=== PATIENT | male | born 1980 | race Caucasian/White ===

== ENCOUNTER 2018-06-23 19:42 | Emergency (ER) | payer SELFPAY | END 2018-06-23 20:20 | disposition left against medical advice (07) | LOC: E/R 19:42 | DX: Z53.21 Procedure and treatment not carried out due to patient leaving prior to being seen by health care provider (principal) ==

== ENCOUNTER 2018-07-13 15:56 | Emergency (ER) | payer SELFPAY ==
[~2018-07-13] VITALS: Ht 172.7 cm; Wt 70.5 kg
[2018-07-13 15:59] VITALS: BP 135/73; PULSE 70; RESP 18; Ht 172.7 cm; Wt 70.5 kg
--- NOTE | 2018-07-13 16:15 | ERD ---
ER Documentation Chief Complaint Chief Complaint L hand contusion/pain/swelling after slammed in door while working 1 hr ago HPI 37-year-old male presents complaint of left hand pain. Patient says that he slammed a door in his hand while working about an hour ago. His pain is currently 5 out of 10. Has not taken any treatments. Pain is made worse with movement. Patient denies any numbness, tingling. Patient denies allergies patient denies medical history. ROS All systems reviewed and are negative except as per history of present illness. Medications Home Meds Active Scripts Ibuprofen* (Motrin*) 600 Mg Tab, 600 MG PO Q6 for pain, #30 TAB Prov:DEMI GAMA 07/13/18 Allergies Allergies: Coded Allergies: No Known Allergy (Unverified , 07/13/18) FmHx Family History: No diabetes, No coronary disease, No other Physical Exam Vitals Vital Signs Date Temp Pulse Resp B/P (MAP) Pulse Ox O2 O2 Flow FiO2 Time Delivery Rate 07/13/18 97.9 70 18 135/73 100 15:59 (93) Physical Exam Const: No acute distress Head: Atraumatic Eyes: Normal Conjunctiva ENT: Normal External Ears, Nose and Mouth. Neck: Full range of motion. No meningismus. Resp: Clear to auscultation bilaterally Cardio: Regular rate and rhythm, no murmurs Abd: Soft, non tender, non distended. Normal bowel sounds Skin: No petechiae or rashes Back: No midline or flank tenderness Left hand: Tenderness to palpation, edema, and ecchymosis located over the second metatarsal of left hand. There is no melchor deformity noted. Overlying skin is intact. Compartments are soft and warm. There is no pallor or cyanosis. Range of motion, distal pulses, and distal sensation is intact. There is normal cap refill. Neur: Awake and alert Psych: Normal Mood and Affect Results 24 hrs Current Medications Medications Dose Sig/Shawn Start Time Status Last (Trade) Ordered Route PRN Stop Time Admin Dose Reason Admin Ibuprofen 600 mg ONCE ONCE 07/13/18 07/13/18 (Motrin) PO 16:30 07/13/18 16:12 16:31 Procedures/MDM DIAGNOSTIC IMAGING REPORT Patient: JOSE LUIS ELAINE DutchPavel : 1980 Age: 37 Sex: M MR #: [id number] DOS: 07/13/18 1607 Ordering MD: DEMI GAMA Location: [facility] Room/Bed: PROCEDURE: XR Left Hand. CLINICAL INDICATION: Trauma. Left hand pain. TECHNIQUE: Three views. Frontal, lateral, and oblique images of the left hand were obtained. COMPARISON: No prior studies are available for comparison. FINDINGS: There is no fracture or dislocation. The soft tissues are normal. Articular surfaces are intact. There is no lytic or blastic lesion. There is no radiopaque foreign body. IMPRESSION: 1. Unremarkable images of the left hand. RPTAT: QQ .Gelacio Paris MD, MD Date Time Electronically viewed and signed by .Gelacio Paris MD, on 07/13/2018 16:23 .R/ CC: DEMI GAMA [id number] MDM: Left hand x-rays were performed. Results within normal limits. Patient's presentation is consistent with contusion of left hand. Patient given Rx for ibuprofen. I have low suspicion for neurovascular compromise, compartment syndrome, fracture, osteomyelitis, septic joint, or other emergent condition. Patient discharged with strict ER precautions. Patient advised to follow up with PMD. All questions answered at discharge. Departure Diagnosis: Primary Impression: Injury of hand Encounter type: initial encounter Laterality: left Qualified Codes: S69.92XA - Unspecified injury of left wrist, hand and finger(s), initial encounter Additional Impression: Pain of hand Laterality: left Qualified Codes: M79.642 - Pain in left hand Condition: Stable DEMI GAMA Jul 13, 2018 16:15
[2018-07-13] MEDS ORDERED: IBUP-1542 PO (16:25)
[2018-07-13] MEDS ORDERED: IBUPROFEN 600 MG TAB PO ONE (16:30)
== END 2018-07-13 16:40 | disposition home or self-care (01) ==
LOC: FTE 15:56
DX: S60.222A Contusion of left hand, initial encounter (principal); W23.0XXA Caught, crushed, jammed, or pinched between moving objects, initial encounter; Y92.89 Other specified places as the place of occurrence of the external cause

== ENCOUNTER 2018-07-25 18:23 | Emergency (ER) | payer BC ==
[~2018-07-25] VITALS: Ht 172.7 cm; Wt 71.5 kg
[~2018-07-25 18:23] MED LIST: IBUP-1542 PO
[2018-07-25 18:27] VITALS: Ht 172.7 cm; Wt 71.5 kg
[2018-07-25 19:05] VITALS: BP 138/81; PULSE 71; RESP 18
--- NOTE | 2018-07-25 19:40 | ERD ---
ER Documentation Chief Complaint Chief Complaint sent by pmd for abdnormal blood results(can't recall) HPI This is a very pleasant 37-year-old gentleman who presents to the emergency room because of referral by his primary care physician Dr. Tillman. It appears over the past 1 month patient is having intermittent occipital headaches that are dull throbbing with numbness of the skin. Patient is treated with a migraine headache medication that is dramatically improved symptomatology. Dr. Tillman called because the patient had an abnormal MRI and had a positive IgG toxoplasma antibody. The patient himself denies any fevers chills or body aches. The patient is taking prophylactic Truvada but has had negative workups for HIV in the past and recently with Dr. Tillman. He denies any headache chest pain or shortness of breath no fevers or chills no rash no neck stiffness no weight loss no hemoptysis or other processes at this time. ROS All systems reviewed and are negative except as per history of present illness. Medications Home Meds Active Scripts Ibuprofen* (Motrin*) 600 Mg Tab, 600 MG PO Q6 for pain, #30 TAB Prov:NATANDEMI 07/13/18 Allergies Allergies: Coded Allergies: No Known Allergy (Unverified , 07/13/18) PMhx/Soc Hx Alcohol Use: No Hx Substance Use: No Hx Tobacco Use: No Smoking Status: Never smoker FmHx Family History: No diabetes Physical Exam Vitals Vital Signs Date Temp Pulse Resp B/P (MAP) Pulse Ox O2 O2 Flow FiO2 Time Delivery Rate 07/25/18 97.2 71 18 138/81 100 Room Air 19:05 (100) 07/25/18 97.2 93 18 146/91 100 18:27 (109) Physical Exam General: Well developed, well nourished, no acute distress Head: Normocephalic, atraumatic. Eyes: Pupils equally reactive, EOM intact ENT: Moist mucous membranes Neck: Supple, no lymphadenopathy Respiratory: Lungs clear bilaterally, no distress Cardiovascular: RRR, no murmurs, rubs, or gallops Abdominal: Soft, non-tender, non-distended, no peritoneal signs : Deferred MSK: No edema, no unilateral swelling, 5/5 strength Neurologic: Alert and oriented, moving all extremities, normal speech, no focal weakness, no cerebellar signs Skin: No rash Psych: Normal mood Procedures/MDM EKG, MONITORS, & DIAGNOSTIC IMAGING: MRI brain from Dr. Tillman. MRI brain on July 09, 2018. Impression: Numerous supratentorial white matter lesions, significant finding given patient's age with a broad differential as detailed below. Further workup including neurologic consultation is recommended. *Findings section suggest that "these lesions are nonspecific at significant given their number and patient's age. Differential is broad and includes vasculitis versus sequelae of migraine versus microvascular ischemic disease versus a variety of infectious or inflammatory processes, toxic metabolic insult or trauma. LAB INTERPRETATION: I reviewed the laboratory testing sent by primary care doctor. Major abnormality is Toxoplasma antibody IgG result was 182 with a positive result being greater than 8.79. Interpretation note is a positive result indicates infection with toxoplasma gondii at some time, but does not differentiate between active or past infection. Toxoplasma antibody IgM is less than 8.0 interpreted as negative Patient was verbally reported to have an RPR that is positive with 1-1 dilution. MEDICAL DECISION MAKING: The patient presents with atypical headache for greater than 1 month. Abnormal MRI as documented above and abnormal toxoplasma results as documented above. The patient himself is asymptomatic at this time. 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 Otherwise the patient has no complaints. The patient's headache is unlikely related to serious etiology. The patient does not exhibit any clinical signs or symptoms, and has no risk factors to suggest headache etiology such as subarachnoid hemorrhage, acute vertebral or carotid dissection, intracranial mass, epidural, subdural hematoma, dural venous sinus thrombosis, giant cell arteritis, or pseudotumor cerebri. Reviewing the patient's MRI imaging. There is subtle abnormalities but could be explained by migraines. His headache is improving with migraine medication. He has no evidence of acute process that would necessarily be concerning and warrant inpatient hospitalization given the duration and timeframe. Additionally Dr. Tillman has arranged for neurology follow-up in the coming weeks. Reviewing the patient's toxoplasma results, it appears that the patient has positive IgG but negative IgM. This would indicate past exposure but no active disease. The patient is immunocompetent host. In this setting I do not believe that there is recommendation for treatment. Based on review of up-to-date, this patient would not require initiation of antibiotic therapy. A phone call has been made to Dr. Agustin, infectious disease provider with no callback at this time. Should be noted that he is not weapons officer. After reviewing the patient's documents, discussing and evaluating the patient I do not feel the patient has an acute medical emergency. I discussed the case with Dr. Tillman as well as my interpretation of the MRI and laboratory testing. I feel the patient has had an appropriate workup with Dr. Tillman and has appropriate follow-up with neurologist based on these MRI findings. He has a nonfocal exam is otherwise well-appearing, immunocompetent and can be safely discharged. Dr. Tillman feels comfortable with this assessment and will follow up on an outpatient basis. DISPOSITION PLAN: The patient does not have an identifiable emergent medical condition that warrants inpatient hospitalization at this time. The patient is deemed safe for discharge with outpatient follow-up. We discussed follow up with the patient's primary care doctor within 24 to 48 hours as needed. We also discussed return to the emergency room for worsening symptoms or worsening condition. Outpatient referral: Neurology as planned Departure Diagnosis: Primary Impression: Encounter for laboratory test Additional Impressions: Encounter for medical screening examination Migraine headache NIYA DIAZ MD Jul 25, 2018 19:40
== END 2018-07-25 19:46 | disposition home or self-care (01) ==
LOC: E/R 18:23
DX: G43.909 Migraine, unspecified, not intractable, without status migrainosus (principal)
CPT/HCPCS: 99282

== ENCOUNTER 2018-08-27 18:59 | Emergency (ER) | payer BC ==
[~2018-08-27] VITALS: Ht 167.6 cm; Wt 70.0 kg
[2018-08-27 19:31] VITALS: Ht 167.6 cm; Wt 70.0 kg
[2018-08-27] MEDS ORDERED: KETOROLAC 30 MG INJ IM STA (20:09)
[2018-08-27] MEDS ORDERED: IBUP-1542 PO (21:14)
[2018-08-27 21:21] VITALS: BP 122/80; PULSE 68; RESP 17
--- NOTE | 2018-08-27 22:42 | ERD ---
ER Documentation Chief Complaint Chief Complaint RIGHT UPPER CHEST WALL PAIN X 2 DAYS HPI Patient is a 38-year-old male with no past medical history presents the ER for concerns of right upper chest pain x2 days. Patient states the pain is localized to his right upper chest wall. He denies any radiation of the pain. Patient denies pleuritic pain. Patient describes the pain to be a pressure-like sensation and states it is constant. Patient denies any associated shortness of breath, nausea, vomiting, left upper extremity pain, diaphoresis or LOC. Patient denies any recent travel, recent surgeries, history of DVT or PE. 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 ROS All systems reviewed and are negative except as per history of present illness. Medications Home Meds Active Scripts Ibuprofen* (Motrin*) 600 Mg Tab, 600 MG PO Q6, #30 TAB Prov:NEFTALI DESOUZA PA-C 08/27/18 Ibuprofen* (Motrin*) 600 Mg Tab, 600 MG PO Q6 for pain, #30 TAB Prov:DEMI GAMA 07/13/18 Allergies Allergies: Coded Allergies: No Known Allergy (Unverified , 07/13/18) PMhx/Soc Medical and Surgical Hx: pt denies Medical Hx, pt denies Surgical Hx Hx Alcohol Use: No Hx Substance Use: No Hx Tobacco Use: No Smoking Status: Never smoker FmHx Family History: No diabetes Physical Exam Vitals Vital Signs Date Temp Pulse Resp B/P (MAP) Pulse Ox O2 O2 Flow FiO2 Time Delivery Rate 08/27/18 98.0 68 17 122/80 98 Room Air 21:21 (94) 08/27/18 98.0 71 16 138/71 100 19:31 (93) Physical Exam GENERAL: Well-developed, well-nourished female. Appears in no acute distress. S peaking in full sentences. HEAD: Normocephalic, atraumatic. EYES: Pupils are equally reactive bilaterally. EOMs grossly intact. No conjunctival erythema. NECK: Supple. No meningismus. Normal range of motion of the neck. CHEST WALL: Tender to palpation of right upper chest wall. Pain is reproducible. LUNG: Clear to auscultation bilaterally. No rhonchi, wheezing, rales or coarse breath sounds. HEART: Regular rate and rhythm. No murmurs, rubs or gallops. Equal pulses in bilateral upper extremities. EXTREMITIES: Equal pulses bilaterally. No peripheral clubbing, cyanosis or edema. No unilateral leg swelling. NEUROLOGIC: Alert and oriented. Moving all four extremities without any difficulty. Normal speech. Steady gait. SKIN: Normal color. Warm and dry. No rashes or lesions. Result Diagram: 08/27/18203008/27/182030 Results 24 hrs Laboratory Tests Test 08/27/18 20:31 White Blood Count 7.8 10^3/ul Red Blood Count 4.72 10^6/ul Hemoglobin 14.1 g/dl Hematocrit 41.1 % Mean Corpuscular Volume 87.1 fl Mean Corpuscular Hemoglobin 29.9 pg Mean Corpuscular Hemoglobin Concent 34.3 g/dl Red Cell Distribution Width 12.5 % Platelet Count 270 10^3/UL Mean Platelet Volume 9.1 fl Immature Granulocytes % 0.300 % Neutrophils % 66.0 % Lymphocytes % 23.1 % Monocytes % 9.7 % Eosinophils % 0.5 % Basophils % 0.4 % Nucleated Red Blood Cells % 0.0 /100WBC Immature Granulocytes # 0.020 10^3/ul Neutrophils # 5.2 10^3/ul Lymphocytes # 1.8 10^3/ul Monocytes # 0.8 10^3/ul Eosinophils # 0.0 10^3/ul Basophils # 0.0 10^3/ul Nucleated Red Blood Cells # 0.0 10^3/ul Sodium Level 143 mmol/L Potassium Level 3.8 mmol/L Chloride Level 105 mmol/L Carbon Dioxide Level 30 mmol/L Anion Gap 8 Blood Urea Nitrogen 15 mg/dl Creatinine 0.79 mg/dl Est Glomerular Filtrat Rate mL/min > 60 mL/min Glucose Level 106 mg/dl Calcium Level 9.9 mg/dl Troponin I < 0.012 ng/ml Current Medications Medications Dose Sig/Shawn Start Time Status Last (Trade) Ordered Route PRN Stop Time Admin Dose Reason Admin Ketorolac 30 mg ONCE STAT 08/27/18 DC 08/27/18 Tromethamine IM 20:09 20:40 (Toradol) 08/27/18 20:10 Procedures/MDM ED COURSE: The patient was stable throughout ED course. I kept the patient and/or family i nformed of laboratory and diagnostic imaging results throughout the ED course. EKG: Read by Dr. Riddle attending physician. EKG shows normal sinus rhythm at a rate of 70 bpm No arrhythmias, acute ST elevations or T wave changes were noted. DIAGNOSTIC IMAGING: Read by radiologist. Patient: JOSE LUIS JACK : 1980 Age: 38 Sex: M MR #: [id number] DOS: 08/27/182008 Ordering MD: NEFTALI DESOUZA PA-C Location: [facility] Room/Bed: PROCEDURE: XR Chest 1 View. CLINICAL INDICATION: Chest pain. TECHNIQUE: Single view of the chest was obtained. COMPARISON: None. FINDINGS: Support lines and tubes: None. Mediastinum: Within normal limits of size. Lungs: Hyperexpanded lungs. Elevated right hemidiaphragm. Scattered atelectasis in both lungs. No consolidations. No pneumothorax. Osseous structures: Intact. Other: None. IMPRESSION: Scattered atelectasis in both lungs. Hyperexpanded lungs with a mildly elevated right hemidiaphragm. RPTAT: AA .Harsh Overton MD, MD Date Time Electronically viewed and signed by .Harsh Overton MD, MD on 08/27/2018 20:50 .P/ CC: NEFTALI DESOUZA PA-C [id number] MEDICAL DECISION MAKING: This is a 38-year-old male with no past medical history presents the ER for concerns of right-sided chest pain x2 days. Patient denied any leg swelling, recent surgeries, travel. Vital signs were reviewed. Patient was afebrile. Patient was not hypoxic. Cardiac exam was normal. Lung exam was normal. Pain was reproduced with palpation. Blood work was obtained. CBC showed no evidence of systemic infection or severe anemia. BMP showed no evidence of electrolyte abnormalities, severe acidosis, alkalosis, renal failure. Troponin was negative. EKG was within normal limits. No STEMI. Reviewed by ED attending. HEART score is low. Low suspicion for acute cardiac event in the last 6 weeks. Low suspicion for acute coronary syndrome, arrhythmia or pericarditis. CXR was within normal limits. No mediastinal widening was noted. Low suspicion for aortic dissection. Low suspicion for pneumothorax, pneumonia or pleural effusion. PERC score 0. Low suspicion for PE. Patient was given Toradol here in the ER. Patient did report improvement in pain. At this time for the patient presentation most consistent with chest wall pain. Patient was advised to take ibuprofen and apply heat to the affected area. Patient was nontoxic, [id number] prior to discharge. PRESCRIPTIONS: Ibuprofen DISCHARGE: At this time, patient is stable for discharge and outpatient management. I have instructed the patient to follow-up with his/her primary care physician in 1-2 days. If symptoms persist, patient may need to see a specialist for further examinations and testing. I have instructed the patient to promptly return to the ER at any time for any new or worsening symptoms including increased increased pain, fever, nausea, vomiting, numbness, weakness, diaphoresis or LOC. The patient and/or family expressed understanding of and agreement with this plan. All questions were answered. Home care instructions were provided. Disclaimer: Inadvertent spelling and grammatical errors are likely due to [employer]/dictation software use and do not reflect on the overall quality of patient care. Also, please note that the electronic time recorded on this note does not necessarily reflect the actual time of the patient encounter. Departure Diagnosis: Primary Impression: Chest wall pain Condition: Fair Patient Instructions: Chest Wall Pain, Costochondritis Referrals: [facility] YOU HAVE RECEIVED A MEDICAL SCREENING EXAM AND THE RESULTS INDICATE THAT YOU DO NOT HAVE A CONDITION THAT REQUIRES URGENT TREATMENT IN THE EMERGENCY DEPARTMENT. FURTHER EVALUATION AND TREATMENT OF YOUR CONDITION CAN WAIT UNTIL YOU ARE SEEN IN YOUR DOCTORS OFFICE WITHIN THE NEXT 1-2 DAYS. IT IS YOUR RESPONSIBILITY TO MAKE AN APPOINTMENT FOR FOLOW-UP CARE. IF YOU HAVE A PRIMARY DOCTOR --you should call your primary doctor and schedule an appointment IF YOU DO NOT HAVE A PRIMARY DOCTOR YOU CAN CALL OUR PHYSICIAN REFERRAL HOTLINE AT IF YOU CAN NOT AFFORD TO SEE A PHYSICIAN YOU CAN CHOSE FROM THE FOLLOWING [facility] CL[facility]ICS [facility] [address]. [facility] [address] [facility]. [facility] [address] [facility] [address] [facility]. [facility] [address] [facility]. [facility]. [address] [facility]. [facility] YOU HAVE RECEIVED A MEDICAL SCREENING EXAM AND THE RESULTS INDICATE THAT YOU DO NOT HAVE A CONDITION THAT REQUIRES URGENT TREATMENT IN THE EMERGENCY DEPARTMENT. FURTHER EVALUATION AND TREATMENT OF YOUR CONDITION CAN WAIT UNTIL YOU ARE SEEN IN YOUR DOCTORS OFFICE WITHIN THE NEXT 1-2 DAYS. IT IS YOUR RESPONSIBILITY TO MAKE AN APPOINTMENT FOR FOLOW-UP CARE. IF YOU HAVE A PRIMARY DOCTOR --you should call your primary doctor and schedule and appointment IF YOU DO NOT HAVE A PRIMARY DOCTOR YOU CAN CALL OUR PHYSICIAN REFERRAL HOTLINE AT . IF YOU CAN NOT AFFORD TO SEE A PHYSICIAN YOU CAN CHOSE FROM THE FOLLOWING [facility]: [facility] [address] [place] [address] [facility] [address] [place], [place] [id number] [place] [address] [address] [place] [address] Additional Instructions: Call your primary care doctor TOMORROW for an appointment during the next 1-2 days.See the doctor sooner or return here if your condition worsens before your appointment time. NEFTALI DESOUZA PA-C August 27, 2018 22:42
== END 2018-08-27 21:21 | disposition home or self-care (01) ==
LOC: FTE 18:59
DX: R07.89 Other chest pain (principal)
CPT/HCPCS: 71045; 80048; 84484; 85025; 93005; 96372; 99285; J1885

== ENCOUNTER → 2018-09-25 | Outpatient (CLI) | payer BC | END | disposition home or self-care (01) | LOC: VAS 10:08 | PROVIDERS: ATTEND Psychiatry & Neurology Neurology | DX: G45.9 Transient cerebral ischemic attack, unspecified (principal) | CPT/HCPCS: 93880 ==

== ENCOUNTER → 2018-10-02 | Outpatient (CLI) | payer BC | END | disposition home or self-care (01) | LOC: LAB 06:04 | PROVIDERS: ATTEND Internal Medicine | DX: R73.03 Prediabetes (principal); E78.5 Hyperlipidemia, unspecified; E55.9 Vitamin D deficiency, unspecified | CPT/HCPCS: 80053; 80061; 82306; 83036; 85025; 85651; 86038 ==

== ENCOUNTER → 2018-10-22 | Outpatient (CLI) | payer BC | END | disposition home or self-care (01) | LOC: LAB 16:32 | PROVIDERS: ATTEND Internal Medicine | DX: M32.9 Systemic lupus erythematosus, unspecified (principal) | CPT/HCPCS: 81003; 85651 ==

== ENCOUNTER → 2018-11-10 | Outpatient (CLI) | payer BC ==
--- NOTE | 2018-11-11 15:04 | RADRPT ---
Vent Rate: 57 bpm RR Interval: 1056 msec CO Interval: 135 msec QRS Duration: 81 msec QT Interval: 389 msec QTC Interval: 379 msec P-R-T Cascade: 33 - 76 - 49 degrees Sinus rhythm...normal P axis, V-rate 50- [address] elevation, anterior leads...ST >0.15mV in V1-V4 Electronically Signed By: Cullen Zamora
== END | disposition home or self-care (01) ==
LOC: EKG 13:30
PROVIDERS: ATTEND Internal Medicine
DX: R07.89 Other chest pain (principal)
CPT/HCPCS: 93005

== ENCOUNTER → 2019-02-03 | Outpatient (CLI) | payer BC | END | disposition home or self-care (01) | LOC: RAD 15:32 | PROVIDERS: ATTEND Internal Medicine | DX: J20.9 Acute bronchitis, unspecified (principal) | CPT/HCPCS: 71046 ==